=== PATIENT | male | born 1960 | race Two or more races ===

== ENCOUNTER 2019-06-06 15:43 | Outpatient (CLI) | payer OTHER | END 2019-06-06 17:00 | disposition home or self-care (01) | LOC: RAD 15:43 | DX: M25.561 Pain in right knee (principal); M25.562 Pain in left knee ==

== ENCOUNTER 2020-01-16 12:44 | Outpatient (CLI) | payer OTHER | END 2020-01-16 12:56 | disposition home or self-care (01) | LOC: RAD 12:44 | DX: M79.652 Pain in left thigh (principal); M79.605 Pain in left leg; Z76.89 Persons encountering health services in other specified circumstances ==

== ENCOUNTER 2020-01-22 14:15 | Outpatient (CLI) | payer OTHER | END 2020-01-22 15:00 | disposition home or self-care (01) | LOC: LAB 14:15 | DX: I49.8 Other specified cardiac arrhythmias (principal); I10 Essential (primary) hypertension; D64.89 Other specified anemias; E88.89 Other specified metabolic disorders; D68.8 Other specified coagulation defects; N39.0 Urinary tract infection, site not specified; Z22.322 Carrier or suspected carrier of Methicillin resistant Staphylococcus aureus ==

== ENCOUNTER 2020-02-01 11:30 | Inpatient (IN) | payer OTHER ==
[~2020-02-01] VITALS: Ht 190.5 cm; Wt 115.7 kg
[2020-02-01] MEDS ORDERED: ADULT LOW DOSE81 M1 PO (13:57)
[2020-02-01] MEDS ORDERED: ATORVASTATIN CA10 MG PO (13:57)
[2020-02-12] MEDS ORDERED: ULTRAM50 MG PO (10:44)
== END 2020-02-08 13:04 | disposition home or self-care (01) | DRG 470 ==
LOC: O/R 02-05 06:00 → SURH 02-05 06:00 → O/R 02-05 11:30 → SURH 02-06 00:21
PROVIDERS: ADMIT Orthopaedic Surgery; ATTEND Orthopaedic Surgery
PROC: 0SRD0J9 Replacement of Left Knee Joint with Synthetic Substitute, Cemented, Open Approach (ICD-10-PCS; principal; 2020-02-05 07:00)
DX: M17.12 Unilateral primary osteoarthritis, left knee (principal); D68.59 Other primary thrombophilia; E78.00 Pure hypercholesterolemia, unspecified

== ENCOUNTER 2020-02-14 08:43 | Outpatient (CLI) | payer OTHER ==
[~2020-02-14 08:43] MED LIST: ADULT LOW DOSE81 M1 PO; ATORVASTATIN CA10 MG PO; ULTRAM50 MG PO
== END 2020-02-14 08:46 | disposition home or self-care (01) ==
LOC: NUCLEAR 08:43
PROVIDERS: ATTEND Orthopaedic Surgery
DX: I80.222 Phlebitis and thrombophlebitis of left popliteal vein (principal)

== ENCOUNTER 2020-05-07 22:05 | Emergency (ER) | payer OTHER ==
[~2020-05-07] VITALS: Ht 190.5 cm; Wt 114.3 kg
[2020-05-08] MEDS ORDERED: KEFLEX500 MG PO (02:21)
[2020-05-08] MEDS ORDERED: PYRIDIUM DS200 MG PO (02:21)
== END 2020-05-08 02:22 ==
LOC: ER 22:05
DX: R30.0 Dysuria (principal); N39.0 Urinary tract infection, site not specified; B96.1 Klebsiella pneumoniae [K. pneumoniae] as the cause of diseases classified elsewhere

== ENCOUNTER 2021-11-26 07:00 | Outpatient (CLI) | payer OTHER ==
[~2021-11-26 07:00] MED LIST changes: +KEFLEX500 MG PO; +PYRIDIUM DS200 MG PO
== END 2021-11-26 07:21 | disposition home or self-care (01) ==
LOC: LAB 07:00
PROVIDERS: ATTEND Orthopaedic Surgery
DX: E55.9 Vitamin D deficiency, unspecified (principal); M85.9 Disorder of bone density and structure, unspecified; D64.9 Anemia, unspecified; M06.4 Inflammatory polyarthropathy; E88.9 Metabolic disorder, unspecified; N41.0 Acute prostatitis; E78.00 Pure hypercholesterolemia, unspecified; N39.0 Urinary tract infection, site not specified

== ENCOUNTER 2021-11-26 08:34 | Outpatient (CLI) | payer OTHER | END 2021-11-26 08:42 | disposition home or self-care (01) | LOC: RAD 08:34 | PROVIDERS: ATTEND Orthopaedic Surgery | DX: R10.84 Generalized abdominal pain (principal); M54.50 Low back pain, unspecified ==

== ENCOUNTER 2021-12-04 14:00 | Inpatient (IN) | payer OTHER ==
[~2021-12-04] VITALS: Ht 190.5 cm; Wt 120.2 kg
[2021-12-05] MEDS ORDERED: DICLOFENAC POTA50 MG (08:09)
== END 2021-12-08 18:25 | disposition home or self-care (01) | DRG 176 ==
LOC: ER 14:00 → ICU-2 23:12 → ICUI 23:12 → ICU-2 12-05 00:08 → ICU 12-06 02:59 → MEDI 12-07 10:35 → ICU 12-07 10:38 → MEDI 12-07 11:07
PROVIDERS: ADMIT Internal Medicine; ATTEND Internal Medicine
PROC: BW24YZZ Computerized Tomography (CT Scan) of Chest and Abdomen using Other Contrast (ICD-10-PCS; 2021-12-04)
PROC: B24BZZZ Ultrasonography of Heart with Aorta (ICD-10-PCS; principal; 2021-12-05)
PROC: 4A12X4Z Monitoring of Cardiac Electrical Activity, External Approach (ICD-10-PCS; 2021-12-07)
DX: I26.99 Other pulmonary embolism without acute cor pulmonale (principal); J90 Pleural effusion, not elsewhere classified; D68.69 Other thrombophilia; R06.02 Shortness of breath; I10 Essential (primary) hypertension; E78.49 Other hyperlipidemia; Z20.822 Contact with and (suspected) exposure to COVID-19

== ENCOUNTER 2022-02-09 08:37 | Outpatient (CLI) | payer OTHER ==
[~2022-02-09 08:37] MED LIST changes: +DICLOFENAC POTA50 MG
== END 2022-02-09 08:43 | disposition home or self-care (01) ==
LOC: LAB 08:37
PROVIDERS: ATTEND Internal Medicine Hematology & Oncology
DX: D68.61 Antiphospholipid syndrome (principal); E72.12 Methylenetetrahydrofolate reductase deficiency; E78.2 Mixed hyperlipidemia; N40.1 Benign prostatic hyperplasia with lower urinary tract symptoms; I10 Essential (primary) hypertension; R10.9 Unspecified abdominal pain; D64.9 Anemia, unspecified; Z79.01 Long term (current) use of anticoagulants; R97.0 Elevated carcinoembryonic antigen [CEA]; D50.8 Other iron deficiency anemias; D51.1 Vitamin B12 deficiency anemia due to selective vitamin B12 malabsorption with proteinuria; D51.0 Vitamin B12 deficiency anemia due to intrinsic factor deficiency

== ENCOUNTER 2022-03-02 08:54 | Outpatient (CLI) | payer OTHER | END 2022-03-02 09:04 | disposition home or self-care (01) | LOC: LAB 08:54 | DX: U07.1 COVID-19 (principal) ==

== ENCOUNTER 2022-03-02 09:45 | Outpatient (CLI) | payer OTHER | END 2022-03-02 09:46 | disposition home or self-care (01) | LOC: NUCLEAR 09:45 | PROVIDERS: ATTEND Internal Medicine | DX: I10 Essential (primary) hypertension (principal); E78.2 Mixed hyperlipidemia | CPT/HCPCS: 78452; 93017; A9500 ==

== ENCOUNTER 2022-06-22 07:02 | Outpatient (CLI) | payer OTHER | END 2022-06-22 07:07 | disposition home or self-care (01) | LOC: LAB 07:02 | PROVIDERS: ATTEND Internal Medicine | DX: E78.00 Pure hypercholesterolemia, unspecified (principal); M54.9 Dorsalgia, unspecified; N40.0 Benign prostatic hyperplasia without lower urinary tract symptoms; I10 Essential (primary) hypertension; Z79.01 Long term (current) use of anticoagulants; I26.99 Other pulmonary embolism without acute cor pulmonale; F90.9 Attention-deficit hyperactivity disorder, unspecified type ==

== ENCOUNTER → 2022-06-22 | Outpatient (CLI) | payer OTHER | END | disposition home or self-care (01) | LOC: RAD 07:41 | PROVIDERS: ATTEND Internal Medicine Hematology & Oncology | DX: E04.2 Nontoxic multinodular goiter (principal); E72.11 Homocystinuria; E72.12 Methylenetetrahydrofolate reductase deficiency; F90.9 Attention-deficit hyperactivity disorder, unspecified type; E78.2 Mixed hyperlipidemia; N40.1 Benign prostatic hyperplasia with lower urinary tract symptoms; D68.61 Antiphospholipid syndrome ==